=== PATIENT | female | born 1995 | race Caucasian/White ===

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

== ENCOUNTER 2017-01-29 09:03 | Emergency (ER) | payer BC ==
[2017-01-29 09:10] VITALS: TEMP 97.3
--- NOTE | 2017-01-29 09:36 | ED ---
Abdominal Pain HPI - General Chief Complaint: Abdominal Pain Stated Complaint: Female Time Seen by Provider: 01/29/17 09:26 Source: patient, RN notes reviewed Mode of arrival: ambulatory Limitations: no limitations - History of Present Illness Initial Comments: 21-year-old female presents emergency department to complaint of menstrual cramps. Patient states that she started. Last night states that she's had worsening cramps and she usually does. She only took Motrin last night nothing this morning. Patient denies any nausea vomiting diarrhea constipation. Denies any chance of . Denies any dysuria or hematuria. Denies any flank pain no chest pain or shortness of breath no back pain. She states is just strictly muscle cramps in she cannot tolerate the pain to work today. Patient offers no other complaints. - Related Data Previous Rx's Medication Instructions Recorded Acetaminophen-Codeine 300-30mg 1 tab PO Q4H PRN #14 tablet 01/29/17 [Tylenol #3] Ibuprofen [Motrin] 600 mg PO Q8HR PRN #30 tab 01/29/17 Allergies Allergy/AdvReac Type Severity Reaction Status Date / Time No Known Allergies Allergy Verified 01/29/17 09:36 Review of Systems ROS Statement: Those systems with pertinent positive or pertinent negative responses have been documented in the HPI. ROS Other: All systems not noted in ROS Statement are negative. Past Medical History Past Medical History: No Reported History History of Any Multi-Drug Resistant Organisms: MRSA Date of last positivie culture/infection: 04/28/2015 MDRO Source:: groin Past Surgical History: Tonsillectomy Past Psychological History: No Psychological Hx Reported Smoking Status: Never smoker Past Alcohol Use History: None Reported Past Drug Use History: None Reported General Exam Limitations: no limitations General appearance: alert, in no apparent distress Head exam: Present: atraumatic, normocephalic, normal inspection ENT exam: Present: normal exam, mucous membranes moist Neck exam: Present: normal inspection. Absent: tenderness, meningismus, lymphadenopathy Respiratory exam: Present: normal lung sounds bilaterally. Absent: respiratory distress, wheezes, rales, rhonchi, stridor Cardiovascular Exam: Present: regular rate, normal rhythm, normal heart sounds. Absent: systolic murmur, diastolic murmur, rubs, gallop, clicks GI/Abdominal exam: Present: soft, normal bowel sounds. Absent: distended, tenderness, guarding, rebound, rigid Back exam: Absent: CVA tenderness (R), CVA tenderness (L) Skin exam: Present: warm, dry, intact, normal color. Absent: rash Course Vital Signs 01/29/17 09:08 Temperature 97.3 F L Pulse Rate 58 L Respiratory 16 Rate Blood Pressure 115/71 O2 Sat by Pulse 100 Oximetry Medical Decision Making - Medical Decision Making 21-year-old female presented for menstrual cramps. Patient has dysmenorrhea. Patient is not currently urinalysis does not show signs of infection. Patient is now on pelvic exam as she is uncomfortable as it is at this time. Patient be given IM Toradol and discharged with pain medication return parameters were discussed. - Lab Data Lab Results 01/29/17 01/29/17 Range/Units 09:26 09:26 Urine Color Yellow Urine Appearance Clear (Clear) Urine pH 5.5 (5.0-8.0) Ur Specific [place] 1.009 (1.001-1.035) Urine Protein Negative (Negative) Urine Glucose (UA) Negative (Negative) Urine Ketones Negative (Negative) Urine Blood Negative (Negative) Urine Nitrite Negative (Negative) Urine Bilirubin Negative (Negative) Urine Urobilinogen <2.0 (<2.0) mg/dL Ur Leukocyte Esterase Negative (Negative) Urine HCG, Qual Not Detected (Not Detectd) Disposition Clinical Impression: Dysmenorrhea Disposition: HOME SELF-CARE Condition: Stable Instructions: Dysmenorrhea (ED) Additional Instructions: Please return to the Emergency Department if symptoms worsen or any other concerns. Prescriptions: Acetaminophen-Codeine 300-30mg [Tylenol #3] 1 tab PO Q4H PRN #14 tablet PRN Reason: pain Ibuprofen [Motrin] 600 mg PO Q8HR PRN #30 tab PRN Reason: Pain Referrals: None,Stated [Primary Care Provider] - 1-2 days Time of Disposition: 09:53
[2017-01-29 09:47] LABS: Appearance,Urine Clear (Clear); Bilirubin,Urine Negative (Negative); Glucose,Urine (UA) Negative (Negative); Ketones,Urine Negative (Negative); Leukocyte Esterase,Urine Negative (Negative); Nitrite,Urine Negative (Negative); PH, Urine 5.5 (5.0-8.0); Protein,Urine Negative (Negative); Specific Gravity,Urine 1.009 (1.001-1.035); UA Billing (MACRO vs. MICRO) CHEM; Urobilinogen,Urine <2.0 mg/dL (<2.0)
[2017-01-29] MEDS ORDERED: KETOROLAC 60 MG/2 ML VIAL IM STA (09:51)
[2017-01-29 10:08] VITALS: BP 107/68; PULSE 65; RESP 18
== END 2017-01-29 10:07 | disposition home or self-care (01) ==
LOC: EC 09:03
DX: N94.6 Dysmenorrhea, unspecified (principal)
CPT/HCPCS: 99284; 96372; 81003; 81025; J1885

== ENCOUNTER 2017-02-20 20:19 | Emergency (ER) | payer BC ==
[2017-02-20 20:52] VITALS: RESP 18
--- NOTE | 2017-02-20 22:33 | XR ---
EXAM: XR Chest, 2 Views CLINICAL HISTORY: Reason: Pain TECHNIQUE: Frontal and lateral views of the chest. COMPARISON: No relevant prior studies available. FINDINGS: Lungs: Unremarkable. No consolidation. Pleural space: Unremarkable. No pneumothorax. Heart: Unremarkable. No cardiomegaly. Mediastinum: Unremarkable. Bones/joints: Unremarkable. IMPRESSION: Normal chest x-rays.
--- NOTE | 2017-02-20 22:47 | ED ---
General Adult HPI - General Chief complaint: Upper Respiratory Infection Stated complaint: Back Pain Time Seen by Provider: 02/20/17 21:55 Source: patient, RN notes reviewed Mode of arrival: ambulatory Limitations: no limitations - History of Present Illness Initial comments: 21-year-old female presents emergency Department chief complaint of chest wall pain. Patient states that she started with some back discomfort while at work within states it hurts in her chest. Patient states the pain started while he was using her upper arms. Patient states that the back pain has resolved but she has pain with deep inspiration. Denies any palpitations denies any smoking history no asthma. Patient has fever, chills, headache or dizziness. Patient states it hurts due to the duration or she moves. - Related Data Previous Rx's Medication Instructions Recorded Ibuprofen [Motrin] 600 mg PO Q8HR PRN #30 tab 02/20/17 Allergies Allergy/AdvReac Type Severity Reaction Status Date / Time No Known Allergies Allergy Verified 02/20/17 21:44 Review of Systems ROS Statement: Those systems with pertinent positive or pertinent negative responses have been documented in the HPI. ROS Other: All systems not noted in ROS Statement are negative. Past Medical History Past Medical History: No Reported History History of Any Multi-Drug Resistant Organisms: MRSA Date of last positivie culture/infection: 04/28/2015 MDRO Source:: groin Past Surgical History: Tonsillectomy Past Psychological History: No Psychological Hx Reported Smoking Status: Never smoker Past Alcohol Use History: None Reported Past Drug Use History: None Reported General Exam Limitations: no limitations General appearance: alert, in no apparent distress Head exam: Present: atraumatic, normocephalic, normal inspection ENT exam: Present: normal exam, mucous membranes moist Neck exam: Present: normal inspection, full ROM. Absent: tenderness, meningismus, lymphadenopathy Respiratory exam: Present: normal lung sounds bilaterally, chest wall tenderness. Absent: respiratory distress, wheezes, rales, rhonchi, stridor Cardiovascular Exam: Present: regular rate, normal rhythm, normal heart sounds. Absent: systolic murmur, diastolic murmur, rubs, gallop, clicks GI/Abdominal exam: Present: soft, normal bowel sounds. Absent: distended, tenderness, guarding, rebound, rigid Back exam: Present: normal inspection, full ROM. Absent: tenderness, paraspinal tenderness, vertebral tenderness Neurological exam: Present: alert, oriented X3, CN II-XII intact Course Vital Signs 02/20/17 20:49 Temperature 99.5 F Pulse Rate 68 Respiratory 18 Rate Blood Pressure 101/67 O2 Sat by Pulse 100 Oximetry EKG Findings - EKG Comments: EKG Findings:: EKG performed at 21:12 normal sinus rhythm with sinus arrhythmia rate of 63 RI interval 132 QS duration 74 QTC is QTC 394/43 Medical Decision Making - Medical Decision Making 21-year-old female presented for back and chest pain. Patient's back pain has resolved patient has reproducible chest wall pain. This most likely related to her work. Patient we discharge on ibuprofen return parameters discussed. Disposition Clinical Impression: Chest wall pain Disposition: HOME SELF-CARE Condition: Stable Instructions: Costochondritis (ED) Additional Instructions: Please return to the Emergency Department if symptoms worsen or any other concerns. Prescriptions: Ibuprofen [Motrin] 600 mg PO Q8HR PRN #30 tab PRN Reason: Pain Referrals: None,Stated [Primary Care Provider] - 1-2 days Time of Disposition: 22:46
[2017-02-20 22:54] VITALS: BP 102/68; PULSE 70; TEMP 98.7
== END 2017-02-20 22:52 | disposition home or self-care (01) ==
LOC: EC 20:19
DX: R07.89 Other chest pain (principal); M54.9 Dorsalgia, unspecified; Z86.14 Personal history of Methicillin resistant Staphylococcus aureus infection
CPT/HCPCS: 71020; 93005; 99283

== ENCOUNTER 2017-02-21 18:08 | Emergency (ER) | payer BC ==
[2017-02-21 18:34] VITALS: BP 101/70; PULSE 62; RESP 20; TEMP 98.3
--- NOTE | 2017-02-21 18:51 | ED ---
General Adult HPI - General Chief complaint: Shortness of Breath Stated complaint: FRANCA Source: patient Mode of arrival: ambulatory Limitations: no limitations - History of Present Illness Initial comments: 21-year-old female patient presents to emergency department today for a recheck. Patient states she was seen here yesterday and was diagnosed with musculoskeletal pain related to her job. 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 She states that she had to repetitively lifts her arms. She states that with one of the movements she had onset of tightness and pain in her upper back pain in the area over the upper trapezius muscles, she states that the pain radiates around into her neck and into her chest. She states that the pain has not changed in any way however has not improved. She states that she was given ibuprofen and has been taking it without relief of symptoms. She states that she is unable to work due to the pain. Patient states she was only given one day off yesterday and is requesting another work note. Patient denies any shortness of breath, fever, chills, rash, headache, weakness, dizziness, abdominal pain, nausea, vomiting, difficulties with urination or bowel movements. Patient states that her pain worsens with movement of her arms. - Related Data Previous Rx's Medication Instructions Recorded Ibuprofen [Motrin] 600 mg PO Q8HR PRN #30 tab 02/20/17 Allergies Allergy/AdvReac Type Severity Reaction Status Date / Time No Known Allergies Allergy Verified 02/21/17 18:33 Review of Systems ROS Statement: Those systems with pertinent positive or pertinent negative responses have been documented in the HPI. ROS Other: All systems not noted in ROS Statement are negative. Past Medical History Past Medical History: No Reported History History of Any Multi-Drug Resistant Organisms: MRSA Date of last positivie culture/infection: 04/28/2015 MDRO Source:: groin Past Surgical History: Tonsillectomy Past Psychological History: No Psychological Hx Reported Smoking Status: Never smoker Past Alcohol Use History: None Reported Past Drug Use History: None Reported General Exam Limitations: no limitations General appearance: alert, in no apparent distress Head exam: Present: atraumatic, normocephalic, normal inspection ENT exam: Present: normal exam, normal oropharynx, mucous membranes moist, TM's normal bilaterally Neck exam: Present: normal inspection, full ROM. Absent: tenderness, meningismus, lymphadenopathy Respiratory exam: Present: normal lung sounds bilaterally, chest wall tenderness (Over the sternum.). Absent: respiratory distress, wheezes, rales, rhonchi, stridor Cardiovascular Exam: Present: regular rate, normal rhythm, normal heart sounds. Absent: systolic murmur, diastolic murmur, rubs, gallop, clicks GI/Abdominal exam: Present: soft, normal bowel sounds. Absent: distended, tenderness, guarding, rebound, rigid Extremities exam: Present: normal inspection, full ROM, normal capillary refill. Absent: tenderness, pedal edema, joint swelling, calf tenderness Back exam: Present: normal inspection, full ROM, tenderness (Tenderness over the upper trapezius muscles.), muscle spasm (Over the left upper trapezius muscle). Absent: rash noted Neurological exam: Present: alert, oriented X3, CN II-XII intact Psychiatric exam: Present: normal affect, normal mood Skin exam: Present: warm, dry, intact, normal color. Absent: rash Course Vital Signs 02/21/17 18:30 Temperature 98.3 F Pulse Rate 62 Respiratory 20 Rate Blood Pressure 101/70 O2 Sat by Pulse 100 Oximetry Medical Decision Making - Medical Decision Making 21-year-old female patient presents to emergency department requesting additional days off for a work injury. Patient is complaining of pain to her upper back, chest, and neck. Patient was seen and evaluated here yesterday chest x-ray was performed and did show no acute cardiopulmonary process, EKG was also performed yesterday which showed normal sinus rhythm. Patient returns today just stating that her pain medication isn't working and she would like additional days off to rest. Patient was given a work note to be off and Sunday, she also has the weekend off so we'll be able to rest those days well. She was instructed to continue taking her ibuprofen for pain control as well as additional methods of pain relief including applying heat to the area. Patient was instructed to follow-up with her primary care physician for recheck in 1-2 days. Instructed to return here immediately for any new, worsening, or concerning symptoms. Patient verbalizes understanding and agrees to this plan. Disposition Clinical Impression: Muscle ache Disposition: HOME SELF-CARE Condition: Good Instructions: Musculoskeletal Pain (ED) Additional Instructions: Apply moist heat to the painful areas. Continue taking ibuprofen for pain control. Gentle stretching exercises. Follow-up with primary care physician for recheck in 1-2 days. Referrals: None,Stated [Primary Care Provider] - 1-2 days Time of Disposition: 18:50
== END 2017-02-21 18:57 | disposition home or self-care (01) ==
LOC: EC 18:08
DX: M79.1 Myalgia (principal); R07.89 Other chest pain
CPT/HCPCS: 99284

== ENCOUNTER 2017-07-21 11:07 | Emergency (ER) | payer BC, OTHER ==
[2017-07-21] MEDS ORDERED: KETOROLAC 60 MG/2 ML VIAL IM STA (11:53)
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
[2017-07-21 13:44] VITALS: BP 112/64; PULSE 72; RESP 17; TEMP 98.7
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
== END 2017-07-21 13:44 | disposition home or self-care (01) ==
LOC: EC 11:07
DX: S16.1XXA Strain of muscle, fascia and tendon at neck level, initial encounter (principal); S29.012A Strain of muscle and tendon of back wall of thorax, initial encounter; Z86.14 Personal history of Methicillin resistant Staphylococcus aureus infection; V40.5XXA Car driver injured in collision with pedestrian or animal in traffic accident, initial encounter; Y92.410 Unspecified street and highway as the place of occurrence of the external cause
CPT/HCPCS: 99284; 96372; 72072; 72050; J1885

== ENCOUNTER 2017-07-29 17:20 | Emergency (ER) | payer BC, OTHER ==
[2017-07-29 17:46] VITALS: BP 111/56; PULSE 15; RESP 14
[2017-07-29] MEDS ORDERED: ACETAMINOPHEN TAB 325 MG TAB PO STA (18:00)
[2017-07-29] MEDS ORDERED: IBUPROFEN 600 MG TAB PO STA (18:00)
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
== END 2017-07-29 18:09 | disposition home or self-care (01) ==
LOC: EC 17:20
DX: M54.6 Pain in thoracic spine (principal); Z86.14 Personal history of Methicillin resistant Staphylococcus aureus infection
CPT/HCPCS: 99283

== ENCOUNTER 2017-10-03 20:13 | Emergency (ER) | payer OTHER ==
--- NOTE | 2017-10-03 21:04 | ED ---
Female Urogenital HPI - General Chief complaint: Urogenital Stated complaint: STD check Time Seen by Provider: 10/03/17 20:47 Source: patient Mode of arrival: ambulatory Limitations: no limitations - History of Present Illness Initial comments: 22-year-old female patient presents to the emergency department today requesting STD testing. States that she recently found out her boyfriend was cheating on her. Patient denies any vaginal bleeding, vaginal discharge, vaginal itching. She denies any dysuria, hematuria, urinary urgency, urinary frequency. Patient denies any physical symptoms at all at this time. She is only requesting testing. Patient denies any recent rash, fever, chills, shortness breath, chest pain, abdominal pain, nausea, vomiting, diarrhea, constipation, back pain, numbness, tingling, dizziness, weakness, hematuria, dysuria, urinary urgency, urinary frequency, headache, visual changes, or any other complaints. Last Menstrual Period: 09/19/17 - Related Data Home Medications Medication Instructions Recorded Confirmed No Known Home Medications [No 10/03/17 10/03/17 Known Home Medications] Allergies Allergy/AdvReac Type Severity Reaction Status Date / Time No Known Allergies Allergy Verified 10/03/17 20:48 Review of Systems ROS Statement: Those systems with pertinent positive or pertinent negative responses have been documented in the HPI. ROS Other: All systems not noted in ROS Statement are negative. Past Medical History Past Medical History: No Reported History History of Any Multi-Drug Resistant Organisms: MRSA Date of last positivie culture/infection: 04/28/2015 MDRO Source:: groin Past Surgical History: Tonsillectomy Past Psychological History: No Psychological Hx Reported Smoking Status: Never smoker Past Alcohol Use History: None Reported Past Drug Use History: None Reported General Exam Limitations: no limitations General appearance: alert, in no apparent distress, other (Social well-developed , well-nourished adult female patient in no acute distress. Vital signs upon presentation are temperature 98.2F, pulse 82, respirations 18, blood pressure 103/60, pulse ox 96% on room air.) Eye exam: Present: normal appearance, PERRL, EOMI. Absent: scleral icterus, conjunctival injection, periorbital swelling ENT exam: Present: normal exam, normal oropharynx, mucous membranes moist Neck exam: Present: normal inspection. Absent: tenderness, meningismus, lymphadenopathy Respiratory exam: Present: normal lung sounds bilaterally. Absent: respiratory distress, wheezes, rales, rhonchi, stridor Cardiovascular Exam: Present: regular rate, normal rhythm, normal heart sounds. Absent: systolic murmur, diastolic murmur, rubs, gallop, clicks GI/Abdominal exam: Present: soft, normal bowel sounds. Absent: distended, tenderness, guarding, rebound, rigid External exam: Present: normal external exam. Absent: erythema, swelling, lesions Speculum exam: Present: normal speculum exam By manual exam: Present: normal by manual exam Neurological exam: Present: alert, oriented X3, CN II-XII intact Psychiatric exam: Present: normal affect, normal mood Skin exam: Present: warm, dry, intact, normal color. Absent: rash Course Vital Signs 10/03/17 20:33 Temperature 98.2 F Pulse Rate 82 Respiratory 18 Rate Blood Pressure 103/60 O2 Sat by Pulse 96 Oximetry Medical Decision Making - Medical Decision Making 22-year-old female patient presented to the emergency department today requesting STD testing. Physical examination was unremarkable. Pelvic examination was unremarkable. Cultures were sent for testing. Did offer HIV testing, patient refused at this time. She will be contacted with results. She is instructed to follow up with her primary care physician and [employer] as soon as possible. She is instructed to return here immediately for any new, worsening, or concerning symptoms. She verbalizes understanding and agrees with this plan. Disposition Clinical Impression: Concern about STD in female without diagnosis Disposition: HOME SELF-CARE Condition: Good Instructions: Sexually Transmitted Diseases (ED) Additional Instructions: We will contact you with results if anything is positive. 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 Return here immediately for any new, worsening, or concerning symptoms. Referrals: None,Stated [Primary Care Provider] - 1-2 days Time of Disposition: 21:05
[2017-10-03 21:28] VITALS: BP 101/58; PULSE 83; RESP 16; TEMP 98.1
[2017-10-05 14:30] LABS: N. gonorrhoeae,PCR Negative (Neg,Equiv); Neisseria Source Cervix
[2017-10-05 14:31] LABS: C. trachomatis,PCR Negative (Neg,Equiv); Chlamydia trachomatis Source Cervix
== END 2017-10-03 21:33 | disposition home or self-care (01) ==
LOC: EC 20:13
DX: Z20.2 Contact with and (suspected) exposure to infections with a predominantly sexual mode of transmission (principal); Z86.14 Personal history of Methicillin resistant Staphylococcus aureus infection
CPT/HCPCS: 87070; 87205; 87491; 87591; 87808; 99283

== ENCOUNTER 2017-11-13 12:07 | Emergency (ER) | payer OTHER ==
[2017-11-13 12:12] VITALS: BP 122/77; PULSE 90; RESP 18; TEMP 97.3
[2017-11-13] MEDS ORDERED: IBUPROFEN 600 MG TAB PO STA (12:31)
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
== END 2017-11-13 12:53 | disposition home or self-care (01) ==
LOC: EC 12:07
DX: M54.6 Pain in thoracic spine (principal); G89.29 Other chronic pain; M54.2 Cervicalgia; Z86.14 Personal history of Methicillin resistant Staphylococcus aureus infection
CPT/HCPCS: 99283

== ENCOUNTER 2018-02-09 10:20 | Emergency (ER) | payer OTHER ==
[2018-02-09 10:38] VITALS: BP 108/71; PULSE 67; RESP 18; TEMP 98
--- NOTE | 2018-02-09 11:04 | ED ---
General Adult HPI - General Chief complaint: Extremity Problem,Nontraumatic Stated complaint: R hand pain Time Seen by Provider: 02/09/18 10:38 Source: patient, RN notes reviewed, old records reviewed Mode of arrival: ambulatory Limitations: no limitations - History of Present Illness Initial comments: This is a 22-year-old female the ER today. This patient presents today for evaluation of right wrist pain. Patient is no significant medical history, takes no medications. No trauma to wrist. 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 She is complaining of some right wrist pain and has progressed throughout the week worsening today. Patient states she 's had difficulty moving oriented having significant cramping or fingers. Patient states she's tried ice and Motrin with no help - Related Data Home Medications Medication Instructions Recorded Confirmed No Known Home Medications 02/09/18 02/09/18 Allergies Allergy/AdvReac Type Severity Reaction Status Date / Time No Known Allergies Allergy Verified 02/09/18 10:38 Review of Systems ROS Statement: Those systems with pertinent positive or pertinent negative responses have been documented in the HPI. ROS Other: All systems not noted in ROS Statement are negative. Past Medical History Past Medical History: No Reported History History of Any Multi-Drug Resistant Organisms: MRSA Date of last positivie culture/infection: 04/28/2015 MDRO Source:: groin Past Surgical History: Tonsillectomy Past Psychological History: No Psychological Hx Reported Smoking Status: Never smoker Past Alcohol Use History: None Reported Past Drug Use History: None Reported General Exam Limitations: no limitations General appearance: alert, in no apparent distress Head exam: Present: atraumatic, normocephalic, normal inspection Eye exam: Present: normal appearance, PERRL, EOMI. Absent: scleral icterus, conjunctival injection, periorbital swelling ENT exam: Present: normal exam, mucous membranes moist Neck exam: Present: normal inspection. Absent: tenderness, meningismus, lymphadenopathy Respiratory exam: Present: normal lung sounds bilaterally. Absent: respiratory distress, wheezes, rales, rhonchi, stridor Cardiovascular Exam: Present: regular rate, normal rhythm, normal heart sounds. Absent: systolic murmur, diastolic murmur, rubs, gallop, clicks GI/Abdominal exam: Present: soft, normal bowel sounds. Absent: distended, tenderness, guarding, rebound, rigid Extremities exam: Present: normal inspection, full ROM, normal capillary refill , other (Right wrist tenderness median nerve tenderness). Absent: tenderness, pedal edema, joint swelling, calf tenderness Back exam: Present: normal inspection Neurological exam: Present: alert, oriented X3, CN II-XII intact Psychiatric exam: Present: normal affect, normal mood Skin exam: Present: warm, dry, intact, normal color. Absent: rash Course Vital Signs 02/09/18 10:33 Temperature 98 F Pulse Rate 67 Respiratory 18 Rate Blood Pressure 108/71 O2 Sat by Pulse 99 Oximetry - Reevaluation(s) Reevaluation #1: 02/09/18 11:04 Patient spoke at length with treatment for carpal tunnel Medical Decision Making - Medical Decision Making 22 female the ER for evaluation of right-sided wrist pain. Injury suspicious for carpal tunnel. Patient given instructions for wrist cock-up splint, Motrin Tylenol and icing, patient will be discharged home Disposition Clinical Impression: Right wrist pain, Carpal tunnel syndrome of right wrist Disposition: HOME SELF-CARE Condition: Good Instructions: Paresthesia (ED) Is patient prescribed a controlled substance at d/c from ED?: No Referrals: None,Stated [Primary Care Provider] - 1-2 days
== END 2018-02-09 11:41 | disposition home or self-care (01) ==
LOC: EC 10:20
DX: G56.01 Carpal tunnel syndrome, right upper limb (principal); Z86.14 Personal history of Methicillin resistant Staphylococcus aureus infection
CPT/HCPCS: 99283

== ENCOUNTER 2018-03-02 16:59 | Emergency (ER) | payer OTHER ==
--- NOTE | 2018-03-02 17:16 | ED ---
Extremity Problem HPI - General Chief complaint: Extremity Problem,Nontraumatic Stated complaint: Wrist pain-[facility] Time Seen by Provider: 03/02/18 17:04 Source: patient, RN notes reviewed, old records reviewed Mode of arrival: ambulatory Limitations: no limitations - History of Present Illness Initial comments: This Patient is a 22-year-old female present the emergency department today with chief complaint of right wrist and hand pain. 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 She reports she's been using a wrist splint but has not had any improvement. Patient reports she is right-handed. She reports occasionally her fingers with tendon and numb.Patient denies any recent fever, chills, shortness of breath, chest pain, back pain, abdominal pain, nausea vomiting, numbness or tingling, dysuria or hematuria, constipation or diarrhea, headaches or visual changes, or any other current symptoms - Related Data Previous Rx's Medication Instructions Recorded Ibuprofen [Motrin] 600 mg PO Q6HR PRN #20 tab 03/02/18 Allergies Allergy/AdvReac Type Severity Reaction Status Date / Time No Known Allergies Allergy Verified 03/02/18 17:12 Review of Systems ROS Statement: Those systems with pertinent positive or pertinent negative responses have been documented in the HPI. ROS Other: All systems not noted in ROS Statement are negative. Past Medical History Past Medical History: No Reported History History of Any Multi-Drug Resistant Organisms: MRSA Date of last positivie culture/infection: 04/28/2015 MDRO Source:: groin Past Surgical History: Tonsillectomy Past Psychological History: No Psychological Hx Reported Smoking Status: Never smoker Past Alcohol Use History: None Reported Past Drug Use History: None Reported General Exam - General Exam Comments Initial Comments: This Patient is a 22-year-old female. Alert and oriented. No acute distress. Limitations: no limitations General appearance: alert, in no apparent distress Head exam: Present: atraumatic, normocephalic, normal inspection Eye exam: Present: normal appearance, PERRL, EOMI. Absent: scleral icterus, conjunctival injection, periorbital swelling ENT exam: Present: normal exam, mucous membranes moist Neck exam: Present: normal inspection. Absent: tenderness, meningismus, lymphadenopathy Respiratory exam: Present: normal lung sounds bilaterally. Absent: respiratory distress, wheezes, rales, rhonchi, stridor Cardiovascular Exam: Present: regular rate, normal rhythm, normal heart sounds. Absent: systolic murmur, diastolic murmur, rubs, gallop, clicks Right Elbow exam: Present: normal inspection, full ROM Forearm Wrist exam: Present: full ROM, tenderness (Patient has pain with range of motion of the wrist.). Absent: normal inspection, swelling Hand Wrist exam: Present: normal inspection, full ROM Neuro motor exam: Present: wrist extension intact, thumb opposition intact, thumb IP flexion intact, thumb adduction intact, fingers 2-5 abduction intact Vascular: Present: normal capillary refill Back exam: Present: normal inspection Neurological exam: Present: alert, oriented X3, CN II-XII intact Psychiatric exam: Present: normal affect, normal mood Course Vital Signs 03/02/18 17:08 Temperature 98.4 F Pulse Rate 93 Respiratory 16 Rate Blood Pressure 104/69 O2 Sat by Pulse 100 Oximetry Medical Decision Making - Medical Decision Making This patient's a 22-year-old female presents emergency Department chief complaint of right wrist pain due to repetitive motions. At this time x-rays were completed any acute process. She has normal sensation and normal capillary refill. She does have full range of motion of fingers and wrist noted. Patient's most likely suffering from tendinitis due to repetitive motion. We'll given a Rashel wrap and symptoms for medicine. Request a work note. All questions answered return parameters were discussed. - Radiology Data Radiology results: report reviewed No significant abnormalities evident within the right wrist or hand. Disposition Clinical Impression: Right wrist tendinitis Disposition: HOME SELF-CARE Condition: Good Instructions: Tendinitis (ED) Additional Instructions: Patient is follow-up with primary care physician. Wrist splint and the Rashel wrap. Take Motrin Tylenol for pain. Ice the hand. Return to the emergency department if any alarming signs or symptoms occur. Prescriptions: Ibuprofen [Motrin] 600 mg PO Q6HR PRN #20 tab PRN Reason: Pain Is patient prescribed a controlled substance at d/c from ED?: No Referrals: None,Stated [Primary Care Provider] - 1-2 days Dianelys Johnston MD [STAFF PHYSICIAN] - 1-2 days Juan Og DO [Doctor of Osteopathic Medicine] - 1-2 days Time of Disposition: 17:55
--- NOTE | 2018-03-02 17:50 | XR ---
Right hand and right wrist HISTORY: Pain, no injury 4 views of the right wrist, 3 views of the right hand are submitted Bone mineralization, joint spaces and alignment are maintained. IMPRESSION: No significant abnormality is evident.
[2018-03-02 18:27] VITALS: BP 120/78; PULSE 87; RESP 18; TEMP 98.1
== END 2018-03-02 18:00 | disposition home or self-care (01) ==
LOC: EC 16:59
DX: M77.9 Enthesopathy, unspecified (principal)
CPT/HCPCS: 99283

== ENCOUNTER 2019-07-22 01:54 | Emergency (ER) | payer BC ==
[2019-07-22 02:05] VITALS: BP 108/72; PULSE 95; RESP 20; TEMP 98.3
[2019-07-22] MEDS ORDERED: ONDANSETRON ODT 4 MG TAB PO STA (04:03)
--- NOTE | 2019-07-22 04:16 | ED ---
Nausea/Vomiting/Diarrhea HPI - General Chief complaint: Nausea/Vomiting/Diarrhea Stated complaint: Light headed/vomiting Time Seen by Provider: 07/22/19 03:37 Source: patient Mode of arrival: ambulatory Limitations: no limitations - History of Present Illness Initial comments: 's patient is 22-year-old woman who presents to be evaluated for nausea and v omiting that it started in the morning and continued through until this evening. The patient states that she did have a couple of episodes of vomiting and then for the most part throughout the day has had some dry heaves. She states that she really has not tried to eat or drink much. She states that what brings her tonight is because she went to work and in the warm environment that she was in she began feeling lightheaded like she would pass out. Patient also has had a little bit of mild epigastric discomfort. Denies change in bowel movements or urination. MD complaint: nausea, vomiting Onset/Timin -: hour(s) Description of Vomiting: food contents Associated Abdominal Pain: Yes Location: epigastric Radiation: none Severity: mild Quality: cramping, other (Burning) Consistency: intermittent Improves with: none Worsens with: none Associated Symptoms: nausea/vomiting - Related Data Home Medications Medication Instructions Recorded Confirmed Acetaminophen [Tylenol] 500 mg PO Q4-6H PRN 03/02/18 03/02/18 Previous Rx's Medication Instructions Recorded Ibuprofen [Motrin] 600 mg PO Q6HR PRN #20 tab 03/02/18 Allergies Allergy/AdvReac Type Severity Reaction Status Date / Time No Known Allergies Allergy Verified 07/22/19 02:05 Review of Systems ROS Statement: Those systems with pertinent positive or pertinent negative responses have been documented in the HPI. ROS Other: All systems not noted in ROS Statement are negative. Constitutional: Denies: fever, chills Respiratory: Denies: cough, dyspnea Cardiovascular: Denies: chest pain, palpitations Gastrointestinal: Reports: abdominal pain, nausea, vomiting. Denies: diarrhea, constipation, hematemesis, melena, hematochezia Genitourinary: Denies: dysuria, frequency, hematuria Musculoskeletal: Denies: back pain Skin: Denies: rash Neurological: Denies: headache Past Medical History Past Medical History: No Reported History History of Any Multi-Drug Resistant Organisms: MRSA Date of last positivie culture/infection: 04/28/2015 MDRO Source:: groin Past Surgical History: Tonsillectomy Past Psychological History: No Psychological Hx Reported Smoking Status: Never smoker Past Alcohol Use History: None Reported Past Drug Use History: None Reported General Exam Limitations: no limitations General appearance: alert, in no apparent distress Head exam: Present: atraumatic, normocephalic Eye exam: Present: normal appearance. Absent: scleral icterus, conjunctival injection ENT exam: Present: normal oropharynx Respiratory exam: Present: normal lung sounds bilaterally. Absent: respiratory distress, wheezes, rales, rhonchi, stridor Cardiovascular Exam: Present: regular rate, normal rhythm, normal heart sounds. Absent: systolic murmur, diastolic murmur, rubs, gallop GI/Abdominal exam: Present: soft, hypoactive bowel sounds. Absent: distended, tenderness, guarding, rebound, rigid, mass, pulsatile mass, hernia Extremities exam: Present: normal inspection, normal capillary refill. Absent: pedal edema, calf tenderness Back exam: Present: normal inspection. Absent: CVA tenderness (R), CVA tenderness (L) Skin exam: Present: warm, dry, intact, normal color. Absent: rash Course Vital Signs 07/22/19 02:02 Temperature 98.3 F Pulse Rate 95 Respiratory 20 Rate Blood Pressure 108/72 O2 Sat by Pulse 97 Oximetry Medical Decision Making - Lab Data Lab Results 07/22/19 07/22/19 Range/Units 04:13 04:13 Urine Color Yellow Urine Appearance Clear (Clear) Urine pH 5.5 (5.0-8.0) Ur Specific [place] 1.035 (1.001-1.035) Urine Protein Trace H (Negative) Urine Glucose (UA) Negative (Negative) Urine Ketones Negative (Negative) Urine Blood Moderate H (Negative) Urine Nitrite Negative (Negative) Urine Bilirubin Negative (Negative) Urine Urobilinogen 3.0 (<2.0) mg/dL Ur Leukocyte Esterase Negative (Negative) Urine RBC 1 (0-5) /hpf Urine WBC 1 (0-5) /hpf Ur Squamous Epith Cells 3 (0-4) /hpf Urine Mucus Occasional H (None) /hpf Urine HCG, Qual Not Detected (Not Detectd) Disposition Clinical Impression: Vomiting Disposition: HOME SELF-CARE Condition: Good Instructions (If sedation given, give patient instructions): Acute Nausea and Vomiting (ED) Is patient prescribed a controlled substance at d/c from ED?: No Referrals: None,Stated [Primary Care Provider] - 1-2 days
[2019-07-22 04:24] LABS: Appearance,Urine Clear (Clear); Bilirubin,Urine Negative (Negative); Blood,Urine Moderate (Negative); Color,Urine Yellow; Glucose,Urine (UA) Negative (Negative); Ketones,Urine Negative (Negative); Leukocyte Esterase,Urine Negative (Negative); Mucus,Urine Occasional /hpf; Nitrite,Urine Negative (Negative); PH, Urine 5.5 (5.0-8.0); Protein,Urine Trace (Negative); RBC,Urine 1 /hpf (0-5); Specific Gravity,Urine 1.035 (1.001-1.035); Squamous Epithelial Cell,Urine 3 /hpf (0-4); WBC,Urine 1 /hpf (0-5)
== END 2019-07-22 05:02 | disposition home or self-care (01) ==
LOC: EC 01:54
DX: R11.10 Vomiting, unspecified (principal); R42 Dizziness and giddiness; R10.13 Epigastric pain
CPT/HCPCS: 81001; 81025; 99284

== ENCOUNTER → 2020-04-27 | Outpatient (CLI) | payer BC | END | disposition home or self-care (01) | LOC: LABWHC1 13:49 | PROVIDERS: ATTEND Emergency Medicine | DX: Z20.828 Contact with and (suspected) exposure to other viral communicable diseases (principal) | CPT/HCPCS: U0003; C9803 ==

== ENCOUNTER → 2022-01-02 | Outpatient (CLI) | payer OTHER ==
--- NOTE | 2022-01-03 04:29 | MR ---
EXAMINATION TYPE: MR brain wo con DATE OF EXAM: 01/02/2022 COMPARISON: None HISTORY: Elevated prolactin level. Multiplanar multiecho imaging of the brain with no contrast. FINDINGS: Diffusion images show no evidence of an acute infarct. Ventricles have normal size. There is no mass effect or midline shift. No sign of intracranial hemorrhage. Lu and white matter structures have no rmal signal pattern. No evidence of cerebral edema. Brainstem is intact. Corpus callosum is intact. T here is no evidence of a sellar mass. There is normal flat superior surface of the pituitary gland. T he pituitary stalk is in the midline. No evidence of orbital mass. IMPRESSION: Normal MRI scan of the brain. No evidence of pituitary mass.
== END | disposition home or self-care (01) ==
LOC: RADMRIMAIN 20:56
PROVIDERS: ATTEND Internal Medicine
DX: E22.1 Hyperprolactinemia (principal)
CPT/HCPCS: 70551